=== PATIENT | male | born 1980 | race Caucasian/White ===

== ENCOUNTER 2017-01-31 17:49 | Emergency (ER) | payer OTHER ==
[~2017-01-31] VITALS: Ht 190.5 cm; Wt 108.0 kg
[~2017-01-31 17:49] MED LIST: MOBI7.5T10 PO; NEUR100C PO; ROBA750T4 PO
[2017-01-31] MEDS ORDERED: TRAM50TA2 PO (18:03)
[2017-01-31] MEDS ORDERED: NIAC500C4 PO (18:03)
[2017-01-31] MEDS ORDERED: mulitvitamin (18:03)
[2017-01-31] MEDS ORDERED: VITA2000 PO (18:03)
[2017-01-31] MEDS ORDERED: KETOROLAC 30 MG/ML VIAL (J1885) IV ONE (19:30)
[2017-01-31] MEDS ORDERED: METOCLOPRAMIDE INJ 10MG/2ML VIAL (J2765) IV ONE (19:30)
[2017-01-31] MEDS ORDERED: diphenhydrAMINE INJ 50MG/ML VIAL (J1200) IV ONE (19:30)
[2017-01-31] MEDS ORDERED: NS 1,000 ML IV ONE (19:30)
[2017-01-31 20:52] VITALS: BP 127/69
[2017-01-31] MEDS ORDERED: REGL10TA6 PO (20:53)
== END 2017-01-31 21:12 | disposition home or self-care (01) ==
LOC: M ED 19:08
DX: G43.909 Migraine, unspecified, not intractable, without status migrainosus (principal); Z87.891 Personal history of nicotine dependence
CPT/HCPCS: 96374; 96375; 99282; J1200; J1885; J2765

== ENCOUNTER 2019-08-07 19:42 | Emergency (ER) | payer OTHER ==
[~2019-08-07] VITALS: Ht 193 cm; Wt 118.6 kg
[~2019-08-07 19:42] MED LIST changes: +MOBI4TAB PO; -MOBI7.5T10 PO; +NIAC500C4 PO; +REGL10TA6 PO; +TRAM50TA2 PO; +VITA2000 PO; +mulitvitamin
[2019-08-07] MEDS ORDERED: SERT25TA85 PO (20:01)
[2019-08-07 22:40] LABS: BASO # 0.1 10^3/uL (0.0-0.2); BASO % 0.7 % (0.0-1.0); EOS # 0.3 10^3/uL (0.0-0.5); EOS % 3.1 % (0.0-3.0); HEMATOCRIT 42.2 % (42.0-52.0); HEMOGLOBIN 14.6 g/dl (13.5-17.5); LYMPH # 3.4 10^3/uL (1.5-5.0); LYMPH % 39.9 % (24.0-44.0); MEAN CORPUSCULAR HEMOGLOBIN 30.7 pg (27.0-33.0); MEAN CORPUSCULAR HGB CONC 34.6 g/dl (32.0-36.5); MEAN CORPUSCULAR VOLUME 88.7 fl (80.0-96.0); MONO # 0.9 10^3/uL (0.0-0.8); MONO % 10.7 % (0.0-5.0); NEUTROPHILS # 3.8 10^3/uL (1.5-8.5); NEUTROPHILS % 45.5 % (36.0-66.0); PLATELET COUNT, AUTOMATED 239 10^3/uL (150-450); RED BLOOD COUNT 4.76 10^6/uL (4.30-6.10); WHITE BLOOD COUNT 8.4 10^3/uL (4.0-10.0)
[2019-08-07 23:15] LABS: CK-MB VALUE MASS 1.9 NG/ML (<3.6); MB/CK RELATIVE INDEX 0.88 (< OR =4); TROPONIN I 0.03 NG/ML (< 0.10)
[2019-08-08 03:13] LABS: CK-MB VALUE MASS 2.2 NG/ML (<3.6); MB/CK RELATIVE INDEX 0.99 (< OR =4); TROPONIN I 0.04 NG/ML (< 0.10)
[2019-08-08 03:52] VITALS: BP 130/73
--- NOTE | 2019-08-08 08:14 | ECGEPIP ---
[facility] - ED Test Date: 2019-08-07 Pat Name: JAVY DING Department: Room: - Gender: Male Events Associate: JKaushik : 1980 Requested By: JAM Irvin PA-C Order Number: [id number] Reading MD: Devi Kaur Measurements Intervals [place] Rate: 50 P: 41 CA: 160 QRS: 19 QRSD: 102 T: 13 QT: 421 QTc: 384 Interpretive Statements SINUS BRADYCARDIA EARLY REPOLARIZATION, CLINICAL CORRELATION NO PRIOR Electronically Signed on 08-08-2019 8:14:18 EDT by Devi Kaur
== END 2019-08-08 03:53 | disposition home or self-care (01) ==
LOC: M ED 19:42
DX: R07.89 Other chest pain (principal); R42 Dizziness and giddiness; R06.02 Shortness of breath; R79.89 Other specified abnormal findings of blood chemistry; Z79.899 Other long term (current) drug therapy; Z87.891 Personal history of nicotine dependence